=== PATIENT | female | born 1940 | race Caucasian/White ===

== ENCOUNTER → 2021-04-28 13:30 | Outpatient (CLI) | payer MEDICARE, SELFPAY ==
--- NOTE | 2021-04-28 13:39 | US_ITS ---
STUDY: SUPERFICIAL ULTRASOUND - RIGHT SUBCLAVICULAR REGION. REASON FOR EXAM: Female, 80 years old. LUMP/MASS - RT CHEST JUST INF TO CLAVICLE TECHNIQUE: A superficial ultrasound was performed with real-time and static santo-scale imaging. COMPARISON: None. FINDINGS: The palpable abnormality was examined by ultrasound. No focal nodule is seen. There is evidence of edematous tissue. US/Chest IMPRESSION: The palpable abnormality corresponds to edematous tissue. No solid or cystic mass lesion is seen. Electronically Signed: Mike Chambers MD at 15:24 EDT , Service support ,
== END ==
DX: R22.2 Localized swelling, mass and lump, trunk (principal)
CPT/HCPCS: 76604

== ENCOUNTER → 2023-05-04 | Outpatient (CLI) | payer MEDICARE, OTHER, SELFPAY ==
[2023-05-04 09:38] LABS: Cholesterol 153 mg/dL (200); High Density Lipoprotein 79 mg/dL; Triglycerides 70 mg/dL; Very Low Density Lipoprotein 14 mg/dL (5-40)
== END | disposition home or self-care (01) ==
DX: I25.10 Atherosclerotic heart disease of native coronary artery without angina pectoris (principal); I71.20 Thoracic aortic aneurysm, without rupture, unspecified
CPT/HCPCS: 36415; 80061